=== PATIENT | female | born 1955 | race Caucasian/White ===

== ENCOUNTER → 2020-09-05 | Outpatient (CLI) | payer MEDICARE ==
[~2020-09-05] MED LIST: DULA0.75 SQ; GABA600T7 PO; GADOTERATE 7.5 MMOL/15ML VIAL. IVP ONE; GLIP5TAB10 PO; METF500T16 PO
--- NOTE | 2020-09-05 12:45 | KCIC ---
MRI Brain with and without contrast History: Ischemic optic neuropathy Technique: Multiplanar, multi sequential pre and postcontrast MR imaging was performed of the brain. Comparison: None Findings: There is some motion degradation. There is no evidence of recent infarct or cytotoxic edema. The ventricles, sulci, and cisterns are within normal limits in size and configuration. There is no significant midline shift, intraaxial mass effect, or focal abnormal extra-axial fluid collection. There is old lacunar infarct of the left centrum semiovale, also likely tiny focus left temporal lobe. There is other mild T2 and FLAIR hypertense signal of the subdural parenchyma bilaterally not associated with enhancement or mass effect. There is no significant hemosiderin deposition of the brain parenchyma. There is no nodular parenchymal or leptomeningeal enhancement. There is preservation of the major intracranial flow-voids at the skull base. The cerebellar tonsils are normal in location. There is no significant abnormality of the pineal gland or pituitary gland. There is patchy mild ethmoid air cell mucosal thickening. There is mild inferior left maxillary sinus mucosal thickening. The mastoid air cells are overall aerated. There is preserved marrow signal of the clivus. There is a round focus of nonspecific signal abnormality of the left occipital scalp on the order of 1 cm in size, could be a complex sebaceous cyst. There has been lens surgery bilaterally. Impression: 1. There is no evidence of recent infarct or abnormal intracranial enhancement. There is old lacunar infarct of the left centrum semiovale, also tiny focus of the left temporal white matter. Other overall mild T2 and FLAIR hyperintense signal of the supratentorial parenchyma is nonspecific, may be due to chronic microvascular ischemic disease in a patient this age. Electronically signed by: Clive Kendall MD (09/05/2020 12:42 PM) [id number]
== END ==
LOC: KCIC MRI 09:51
PROVIDERS: ATTEND Ophthalmology
DX: H47.011 Ischemic optic neuropathy, right eye (principal); Z86.73 Personal history of transient ischemic attack (TIA), and cerebral infarction without residual deficits
CPT/HCPCS: 70553; A9575